=== PATIENT | female | born 1965 | race Caucasian/White ===

== ENCOUNTER 2024-11-29 06:19 | Day surgery (SDC) | payer MEDICAID, OTHER ==
[~2024-11-29 06:19] MED LIST: Sodium Chloride 0.9% 10 ML Syringe FLUSH PRN
[2024-11-29] MEDS ORDERED: Propofol 200 MG/20 ML SDV IV ONE (06:20)
[2024-11-29] MEDS ORDERED: Lidocaine 2% 100 MG/5 ML Syringe IVPUSH ONE (06:20)
[2024-11-29] MEDS: Lactated Ringers 1,000 ML IV SCH (07:23)
[2024-11-29] MEDS: Simethicone Drops 40 MG/0.6 ML 30 ML Bottle ONE (07:37)
== END 2024-11-29 09:15 | disposition home or self-care (01) ==
LOC: FB.SDS 06:19
PROVIDERS: ATTEND Surgery
DX: Z12.11 Encounter for screening for malignant neoplasm of colon (principal); K62.89 Other specified diseases of anus and rectum
CPT/HCPCS: 45378; A9270; J2704; J7120; 00812